=== PATIENT | male | born 2005 | race Caucasian/White ===

== ENCOUNTER 2023-09-01 19:55 | Emergency (ER) | payer SELFPAY ==
[~2023-09-01] VITALS: Ht 167.6 cm; Wt 72.6 kg
[2023-09-01 20:14] VITALS: BP 147/102; PULSE 93; RESP 16; TEMP 97.9; O2SAT 99
[2023-09-01 20:17] VITALS: BP 147/102; PULSE 93; RESP 16; TEMP 97.9; O2SAT 99
[2023-09-01] MEDS: LIDOCAINE MPF 1% 10 MG/ML VIAL INJ ONE (20:47)
[2023-09-01] MEDS: IBUPROFEN 600 MG TAB PO ONE (20:47)
[2023-09-01] MEDS: ACETAMINOPHEN EXTRA STRENGTH 500 MG TAB PO ONE (20:48)
[2023-09-01] MEDS ORDERED: ACET-10509 PO (21:16)
[2023-09-01] MEDS ORDERED: CEPH-588 PO (21:16)
[2023-09-01] MEDS ORDERED: IBUP-2213 PO (21:16)
== END 2023-09-01 21:33 | disposition home or self-care (01) ==
LOC: MED 19:55
DX: S61.313A Laceration without foreign body of left middle finger with damage to nail, initial encounter (principal); Z79.899 Other long term (current) drug therapy; X58.XXXA Exposure to other specified factors, initial encounter; Y93.89 Activity, other specified; Y92.89 Other specified places as the place of occurrence of the external cause; Y99.8 Other external cause status
CPT/HCPCS: 11760; 73140; 99285; J2001

== ENCOUNTER 2023-09-03 14:50 | Emergency (ER) | payer MEDICAID ==
[~2023-09-03] VITALS: Ht 167.6 cm; Wt 63.5 kg
[~2023-09-03 14:50] MED LIST: ACET-10509 PO; CEPH-588 PO; IBUP-2213 PO
[2023-09-03 15:07] VITALS: BP 133/85; PULSE 76; RESP 16; TEMP 98.5; O2SAT 99
[2023-09-03] MEDS: BACITRACIN OINT 500 UNITS/GM PKT TP ONE (15:40)
== END 2023-09-03 16:00 | disposition home or self-care (01) ==
LOC: MED 14:50
DX: S61.313A Laceration without foreign body of left middle finger with damage to nail, initial encounter (principal); Z48.00 Encounter for change or removal of nonsurgical wound dressing; Z79.899 Other long term (current) drug therapy; X58.XXXA Exposure to other specified factors, initial encounter; Y93.89 Activity, other specified; Y92.89 Other specified places as the place of occurrence of the external cause; Y99.8 Other external cause status
CPT/HCPCS: 99283